=== PATIENT | female | born 1980 ===

== ENCOUNTER 2017-05-22 10:39 | Outpatient (CLI) | payer OTHER ==
[2017-05-22 11:26] LABS: Hematocrit 44.3 % (30.3-42.9); Hemoglobin 14.7 gm/dl (10.1-14.3); Mean Corpuscular HGB Conc 33 % (30-34); Mean Corpuscular Hemoglobin 30 pg (28-32); Mean Corpuscular Volume 90 fl (79-97); Platelet Count 355 K/mm3 (140-440); Red Blood Count 4.94 M/mm3 (3.65-5.03); Red Cell Distribution Width 12.4 % (13.2-15.2); White Blood Count 5.9 K/mm3 (4.5-11.0)
[2017-05-22 11:47] LABS: Alanine Aminotransferase 33 units/L (7-56); Albumin 4.7 g/dL (3.9-5); Albumin/Globulin Ratio 1.6 %; Alkaline Phosphatase 56 units/L (35-129); Anion Gap 22 mmol/L; BUN/Creatinine Ratio 30; Blood Urea Nitrogen 12 mg/dL (7-17); Calcium 9.2 mg/dL (8.4-10.2); Carbon Dioxide 24 mmol/L (22-30); Chloride 101.2 mmol/L (98-107); Glucose 88 mg/dL (65-100); Potassium 4.7 mmol/L (3.6-5.0); Sodium 142 mmol/L (137-145); Total Protein 7.7 g/dL (6.3-8.2)
== END 2017-05-22 10:40 | disposition home or self-care (01) ==
LOC: LAB 10:39
PROVIDERS: ATTEND Surgery
DX: Z32.02 Encounter for pregnancy test, result negative (principal); R10.11 Right upper quadrant pain
CPT/HCPCS: 36415; 80053; 84702; 85027

== ENCOUNTER 2017-05-25 09:49 | Day surgery (SDC) | payer OTHER ==
[~2017-05-25 09:49] MED LIST: NACL 0.9% IR ONE
[2017-05-25] MEDS ORDERED: MORPHINE IV PRN (11:33)
[2017-05-25] MEDS ORDERED: ZOFRAN IV PRN (11:33)
--- NOTE | 2017-05-25 11:37 | Anesthesia Day of Surgery ---
Anesthesia Day of Surgery - Day of Surgery Patient Examined: Yes Patient is NPO: Yes
--- NOTE | 2017-05-25 11:38 | Anesthesia Consultation ---
Anesthesia Consult and Med Hx Date of service: 05/25/17 - Airway Anesthetic Teeth Evaluation: Good ROM Head & Neck: Adequate Mental/Hyoid Distance: Adequate Mallampati Class: Class II Intubation Access Assessment: Probably Good - Pulmonary Exam CTA: Yes - Cardiac Exam Cardiac Exam: RRR - Pre-Operative Health Status ASA Pre-Surgery Classification: ASA2 Proposed Anesthetic Plan: General - Pulmonary Hx Smoking: No Hx Asthma: No COPD: No Hx Pneumonia: No - Central Nervous System Hx Psychiatric Problems: No - Gastrointestinal Hx Gastroesophageal Reflux Disease: Yes (with spicy food) - Endocrine Hx End Stage Renal Disease: No Hx Insulin Dependent Diabetes: No - Hematic Hx Anemia: No - Other Systems Hx Cancer: No Hx Obesity: Yes
[2017-05-25] MEDS ORDERED: ANCEF/STERILE WATER 2 GM/20 ML IV NR (12:00)
[2017-05-25] MEDS ORDERED: NACL 0.9% 1000 ML 1,000 ML IV SCH (12:00)
[2017-05-25] MEDS ORDERED: VERSED IV NR (12:00)
[2017-05-25] MEDS ORDERED: PEPCID PO NR (12:00)
[2017-05-25] MEDS ORDERED: DIPRIVAN 10 MG/ML IV ONE (12:27)
[2017-05-25] MEDS ORDERED: SUBLIMAZE ONE (12:28)
[2017-05-25] MEDS ORDERED: XYLOCAINE MPF 2% ONE (12:28)
[2017-05-25] MEDS ORDERED: ZEMURON IV ONE (12:30)
[2017-05-25] MEDS ORDERED: MARCAINE 0.5% INFILTRATI ONE ×3 (12:34→13:11)
[2017-05-25] MEDS ORDERED: DECADRON ONE (13:02)
[2017-05-25] MEDS ORDERED: ZOFRAN ONE (13:10)
[2017-05-25] MEDS ORDERED: TORADOL ONE (13:10)
[2017-05-25] MEDS ORDERED: ROBINUL ONE (13:17)
[2017-05-25] MEDS ORDERED: NEOSTIGMINE ONE (13:17)
[2017-05-25] MEDS ORDERED: DILAUDID ONE (13:30)
--- NOTE | 2017-05-25 13:52 | Discharge Summary ---
Short Stay Discharge Plan Activity: advance as tolerated Weight Bearing Status: Weight Bear as Tolerated Diet: low fat, low cholesterol Wound: per your surgeon's advice Follow up with: SHRUTI RACHEL MD [Primary Care Provider] - 7 Days
[2017-05-25] MEDS ORDERED: NORCO 5/325 PO PRN (13:54)
[2017-05-25 16:06] VITALS: BP 124/70
[2017-05-25] MEDS ORDERED: PHENERGAN PO ONE (16:27)
--- NOTE | 2017-05-25 19:58 | Operative Report ---
PREOPERATIVE DIAGNOSES: Gallbladder disease with stone. POSTOPERATIVE DIAGNOSES: Gallbladder disease with stone with adhesions. SURGERY: Laparoscopic cholecystectomy. ANESTHESIA: General. BLOOD LOSS: Minimal. WARP DRESSER: Dr. Lala. FINDINGS: The patient had gallbladder that showed lots of adhesion between it and the omentum, were able to lyse all these and reach the cystic duct area. DESCRIPTION OF PROCEDURE: With the patient in supine position, prepped and draped in the usual fashion. I made a small incision in the right mid upper abdomen. With the Veress needle, I was able to introduce CO2 up to pressure of 15 for which #5 trocar inserted. Another trocar was inserted in the right upper aspect of the abdomen, another #5 in the infraumbilical area over the old scar and then #10 in the mid epigastrium on the right side. The gallbladder was then held with the grasper and dissecting the adhesions all the way down to the infundibulum, at which point another grasper applied. Then, all the adhesions were lysed reaching the cystic duct area that we could see easily. This was transected after being endoclipped x 4 and then the same for the cystic artery with 2 clips only. Then, the gallbladder was removed in toto using caudal cautery. It was then removed via the EndoCatch to the outside. We were very much satisfied, the area was then irrigated thoroughly with normal saline and sustaining good hemostasis, all the trocars were removed one by one and then the fascia was closed with #0 Vicryl [id number] and the multiple skins with 4-0 Vicryl and the bandage. The patient was then transferred to the recovery in good condition. JOB# [id number] ITZ/KAITLYNN
--- NOTE | 2017-05-26 03:48 | Post Anesthesia Evaluation ---
- Post Anesthesia Evaluation Patient Participated: Yes Airway Patent: Yes Stable Respiratory Function: Yes Nausea/Vomiting: No Temp > 96.8F: Yes Pain Manageable: Yes Adequeate Hydration: Yes Anesthesia Complications: No Block Receding Appropriately: Not Applicable Patient on Ventilator: No Other Comments: LATE ENTRY
== END 2017-05-25 17:00 | disposition home or self-care (01) ==
LOC: OR 09:49
PROVIDERS: ATTEND Surgery
DX: K80.10 Calculus of gallbladder with chronic cholecystitis without obstruction (principal); K66.0 Peritoneal adhesions (postprocedural) (postinfection); K21.9 Gastro-esophageal reflux disease without esophagitis; E66.9 Obesity, unspecified; Z68.32 Body mass index [BMI] 32.0-32.9, adult; Z98.51 Tubal ligation status
CPT/HCPCS: 47562; 88304; A4217; J0690; J1100; J1170; J1885; J2250; J2405; J2704; J2710; J3010; J7030; Q0169

== ENCOUNTER 2022-01-21 08:31 | Day surgery (SDC) | payer OTHER ==
[~2022-01-21 08:31] MED LIST changes: -NACL 0.9% IR ONE; +SODIUM CHLORIDE 0.9% 1000 ML 1,000 ML IV SCH
[2022-01-21] MEDS ORDERED: propofoL 200 MG/20 ML VIAL IV ONE (11:11)
--- NOTE | 2022-01-21 11:44 | Short Stay Summary ---
Short Stay Documentation Date of service: 01/21/22 Narrative H&P: The patient presents for diagnostic colonoscopy for hematochezia - History H&P: obtained from office - Allergies and Medications Current Medications: Allergies No Known Allergies Allergy (Verified 01/07/17 08:03) Home Medications Medication Instructions Recorded Confirmed Last Taken Type Omeprazole 20 mg PO BID 01/16/22 01/16/22 Unknown History Protonix 40 mg PO DAILY 01/16/22 01/16/22 Unknown History Active Medications Sodium Chloride (Nacl 0.9% 1000 Ml) 1,000 mls @ 50 mls/hr IV DIRECT LUCIUS - Brief post op/procedure progress note Date of procedure: 01/21/22 Findings: see dictation Estimated blood loss: none Pathology: list (5 mm polyp in descending colon) Specimen disposition: to lab Condition: stable - Disposition Condition at discharge: Good Disposition: 01 HOME / SELF CARE / HOMELESS - Discharge Diagnoses (1) Hematochezia Status: Acute Short Stay Discharge Plan Follow up with: EVELYN RAMOS MD [Primary Care Provider] - 7 Days
--- NOTE | 2022-01-21 11:46 | Operative Report ---
Operative Report Operative Report: Date of procedure: 01/22/2020 Preprocedure diagnosis: Hematochezia Post procedure diagnosis: Small internal hemorrhoids. 5 mm descending colon polyp Procedure: Colonoscopy to the cecum with cold forceps polypectomy Endoscopist: Dr. Porter Anesthesia: Monitored anesthesia care per anesthesia department Estimated blood loss: 0 Medications: Monitored anesthesia care. See separate report by anesthesia for details. After careful discussion of the nature and purpose of the procedure as well as details of the technique risks benefits and alternatives the patient gave consent. Please see recent history and physical from the office. The patient was placed in the left lateral decubitus position and medicated per anesthesia. A rectal exam was performed sphincter tone was normal there were no masses palpable. The [employer] 570 scope was passed transanally and advanced under continuous direct vision without difficulty to the cecum. The colon was well prepared. The cecum was normal. The ascending colon was normal and on forward and retroflexed views. The transverse colon was normal. The descending colon revealed a 5 mm sessile polyp polyp was removed with 2 bites of the cold forceps. The sigmoid colon was normal.l. The rectum revealed small internal hemorrhoids on retroflexed view but was otherwise normal. The procedure was well-tolerated overall and the patient was observed in recovery. Conclusions: Small internal hemorrhoids. Diminutive descending colon polyp. Plan: Await pathology. Repeat colonoscopy in 5 or 10 years depending upon the pathology. The patient will call the office in 1 week to discuss the pathology findings. Signed electronically: Juan Porter M.D.
--- NOTE | 2022-01-21 16:17 | Anesthesia Day of Surgery ---
Anesthesia Day of Surgery - Day of Surgery Patient Examined: Yes Patient H&P Reviewed: Yes Patient is NPO: Yes
--- NOTE | 2022-01-21 16:18 | Post Anesthesia Evaluation ---
- Post Anesthesia Evaluation Patient Participated: Yes Airway Patent: Yes Stable Respiratory Function: Yes Nausea/Vomiting: No Temp > 96.8F: Yes Pain Manageable: Yes Adequeate Hydration: Yes Anesthesia Complications: No Block Receding Appropriately: Not Applicable Patient on Ventilator: No
--- NOTE | 2022-01-21 16:18 | Anesthesia Consultation ---
Anesthesia Consult and Med Hx Date of service: 01/21/22 - Airway Anesthetic Teeth Evaluation: Good ROM Head & Neck: Adequate Mental/Hyoid Distance: Adequate Mallampati Class: Class I Intubation Access Assessment: Good - Pre-Operative Health Status ASA Pre-Surgery Classification: ASA2 Proposed Anesthetic Plan: MAC - Pulmonary Hx Smoking: No Hx Asthma: No COPD: No Hx Pneumonia: No Hx Sleep Apnea: No - Central Nervous System Hx Psychiatric Problems: No - Gastrointestinal Hx Gastroesophageal Reflux Disease: Yes (with spicy food) - Endocrine Hx End Stage Renal Disease: No Hx Insulin Dependent Diabetes: No - Hematic Hx Anemia: No - Other Systems Hx Cancer: No Hx Obesity: Yes
[2022-01-21 17:37] VITALS: BP 125/73
== END 2022-01-21 12:30 | disposition home or self-care (01) ==
LOC: GIO 08:31
PROVIDERS: ATTEND Internal Medicine Gastroenterology
DX: K92.1 Melena (principal); D12.4 Benign neoplasm of descending colon; K64.8 Other hemorrhoids; N93.8 Other specified abnormal uterine and vaginal bleeding; E66.9 Obesity, unspecified; K21.9 Gastro-esophageal reflux disease without esophagitis; Z68.32 Body mass index [BMI] 32.0-32.9, adult; Z90.710 Acquired absence of both cervix and uterus; Z79.899 Other long term (current) drug therapy; Z98.51 Tubal ligation status; Z98.890 Other specified postprocedural states; Z86.2 Personal history of diseases of the blood and blood-forming organs and certain disorders involving the immune mechanism
CPT/HCPCS: 45380; 88305; J2704; J7030